=== PATIENT | male | born 1955 ===

== ENCOUNTER → 2020-09-19 14:06 | Outpatient (CLI) | payer OTHER | END | disposition home or self-care (01) | LOC: PPH VACUNA 14:06 | DX: Z23 Encounter for immunization (principal) ==

== ENCOUNTER 2021-03-23 07:28 | Outpatient (CLI) | payer OTHER | END 2021-03-23 07:32 | disposition home or self-care (01) | LOC: PPH VACUNA 07:28 | PROVIDERS: ATTEND Emergency Medicine Pediatric Emergency Medicine | DX: Z23 Encounter for immunization (principal) ==